=== PATIENT | male | born 1985 | race Caucasian/White ===

== ENCOUNTER 2018-11-13 20:08 | Emergency (ER) | payer SELFPAY ==
[~2018-11-13] VITALS: Ht 180.3 cm; Wt 59.0 kg
[~2018-11-13 20:08] MED LIST: DIAZ-345 PO; DOXY100C2 PO; HYDR1TAB PO
--- OUTSIDE RECORDS SUMMARY | 2018-11-13 20:12 | XMS REPORT ---
Author Author IRENE SOUSA Organization [employer] Address Unknown Phone Unavailable Care Team Providers Care Rn Digestive Name Role Phone IRENE SOUSA Unavailable Allergies No Known Allergies Problems Problem Type Condition ICD-9 Code Onset Dates Condition Status Problem Major depressive disorder, recurrent episode, moderate 296.32 Active Problem Abdominal pain, unspecified site 789.00 Active Medications Medication Code System Code Instructions Start Date End Date Status Dosage Xanax [facility] [address]-28 1 MG Orally Three times a day PRN Oct 09, 2014 1 tablet Results No Known Results Summary Purpose [employer] Submission
--- OUTSIDE RECORDS SUMMARY | 2018-11-13 20:13 | XMS REPORT | Continuity of Care Document ---
Author Author [facility] Address Unknown Phone Unavailable Allergies Active Description Code Type Severity Reaction Onset Reported/Identified Relationship to Patient Clinical Status Yes PCN PCN Unknown N/ A 02/22/2010 Yes Augmentin Drug Allergy N/A N/A 03/03/2010 Yes erythromycin Drug Allergy N/ A N/A 03/03/2010 Yes Penicillins Drug Allergy N/A N/A 03/03/2010 Yes Augmentin Drug Allergy 03/03/2010 Yes erythromycin Drug Allergy 03/03/2010 Yes Penicillins Drug Allergy 03/03/2010 Yes amoxicillin trihydrate [id number] Drug Allergy Unknown VOMITING 2011 Yes potassium clavulanate [id number] Drug Allergy Unknown VOMITING 2011 Medications There is no data. Problems Date Dx Coded Attending Type Code Diagnosis Diagnosed By 06/24/2008 300.01 AN PANIC DIS W/O AGORA 06/24/2008 311 MO DEPRESSIVE DISORDER NOS 06/24/2008 BERNABE ARIAS DO 300.01 AN PANIC DIS W/O AGORA 06/24/2008 BERNABE ARIAS DO 311 MO DEPRESSIVE DISORDER NOS 06/24/2008 300.01 AN PANIC DIS W/O AGORA 06/24/2008 311 MO DEPRESSIVE DISORDER NOS 06/24/2008 300.01 AN PANIC DIS W/O AGORA 06/24/2008 311 MO DEPRESSIVE DISORDER NOS 06/24/2008 BERNABE ARIAS DO 300.01 AN PANIC DIS W/O AGORA 06/24/2008 BERNABE ARIAS DO 311 MO DEPRESSIVE DISORDER NOS 06/24/2008 TAMIKO TOM APRN 300.01 AN PANIC DIS W/O AGORA 06/24/2008 TAMIKO TOM APRN 311 MO DEPRESSIVE DISORDER NOS 06/24/2008 TAMIKO TOM APRN 300.01 AN PANIC DIS W/O AGORA 06/24/2008 TAMIKO TOM APRN 311 MO DEPRESSIVE DISORDER NOS 06/24/2008 IRENE REED 300.01 AN PANIC DIS W/O AGORA 06/24/2008 IRENE REED 311 MO DEPRESSIVE DISORDER NOS 06/24/2008 IRENE REED 300.01 AN PANIC DIS W/O AGORA 06/24/2008 IRENE REDE Chantelle 311 MO DEPRESSIVE DISORDER NOS 07/03/2008 304.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 07/03/2008 307.47 SI DYSSOMNIA NOS 07/03/2008 BERNABE ARIAS DO 304.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 07/03/2008 BERNABE ARIAS DO 307.47 SI DYSSOMNIA NOS 07/03/2008 304.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 07/03/2008 307.47 SI DYSSOMNIA NOS 07/03/2008 304.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 07/03/2008 307.47 SI DYSSOMNIA NOS 07/03/2008 BERNABE ARIAS DO F 304.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 07/03/2008 BERNABE ARIAS DO F 307.47 SI DYSSOMNIA NOS 07/03/2008 NEGRO KINNEY TAMIKO CONTI 304.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 07/03/2008 TOM NIRMAL TAMIKO CONTI 307.47 SI DYSSOMNIA NOS 07/03/2008 NEGRO KINNEY TAMIKO CONTI 304.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 07/03/2008 NEGRO KINNEY TAMIKO CONTI 307.47 SI DYSSOMNIA NOS 07/03/2008 IRENE REED 304.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 07/03/2008 IRENE REED 307.47 SI DYSSOMNIA NOS 07/03/2008 IRENE REED 304.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 07/03/2008 IRENE REED 307.47 SI DYSSOMNIA NOS 02/22/2010 Ot 723.1 03/03/2010 723.1 CERVICALGIA 03/03/2010 728.87 MUSCLE WEAKNESS (GENERALIZED) 03/03/2010 783.21 WEIGHT LOSS 03/03/2010 787.01 NAUSEA WITH VOMITING 03/03/2010 BERNABE ARIAS DO 723.1 CERVICALGIA 03/03/2010 BERNABE ARIAS DO 728.87 MUSCLE WEAKNESS (GENERALIZED) 03/03/2010 WERDER DO, BERNABE F 783.21 WEIGHT LOSS 03/03/2010 PHI ARIAS DOEN F 787.01 NAUSEA WITH VOMITING 03/03/2010 723.1 CERVICALGIA 03/03/2010 728.87 MUSCLE WEAKNESS (GENERALIZED) 03/03/2010 783.21 WEIGHT LOSS 03/03/2010 787.01 NAUSEA WITH VOMITING 03/03/2010 723.1 CERVICALGIA 03/03/2010 728.87 MUSCLE WEAKNESS (GENERALIZED) 03/03/2010 783.21 WEIGHT LOSS 03/03/2010 787.01 NAUSEA WITH VOMITING 03/03/2010 BERNABE ARIAS DO F 723.1 CERVICALGIA 03/03/2010 PHI ARIAS DOEN F 728.87 MUSCLE WEAKNESS (GENERALIZED) 03/03/2010 PHI ARIAS DOEN F 783.21 WEIGHT LOSS 03/03/2010 BERNABE ARIAS DO F 787.01 NAUSEA WITH VOMITING 03/03/2010 NEGRO KINNEY TAMIKO CONTI 723.1 CERVICALGIA 03/03/2010 NEGRO KINNEY TAMIKO CONTI 728.87 MUSCLE WEAKNESS (GENERALIZED) 03/03/2010 NEGRO HOME ADVISOR, TAMIKO CONTI 783.21 WEIGHT LOSS 03/03/2010 TOM HOME ADVISOR, TAMIKO KCH 787.01 NAUSEA WITH VOMITING 03/03/2010 NEGRO KINNEY TAMIKO CONTI 723.1 CERVICALGIA 03/03/2010 NEGRO HOME ADVISOR, TAMIKO KCH 728.87 MUSCLE WEAKNESS (GENERALIZED) 03/03/2010 NEGRO KINNEY TAMIKO KCH 783.21 WEIGHT LOSS 03/03/2010 ENGRO KINNEY TAMIKO KCH 787.01 NAUSEA WITH VOMITING 03/03/2010 IRENE REED M 723.1 CERVICALGIA 03/03/2010 IRENE REED M 728.87 MUSCLE WEAKNESS (GENERALIZED) 03/03/2010 IRENE REED M 783.21 WEIGHT LOSS 03/03/2010 IRENE REED M 787.01 NAUSEA WITH VOMITING 03/03/2010 IRENE REED M 723.1 CERVICALGIA 03/03/2010 IRENE REED M 728.87 MUSCLE WEAKNESS (GENERALIZED) 03/03/2010 IRENE REED M 783.21 WEIGHT LOSS 03/03/2010 IRENE REED M 787.01 NAUSEA WITH VOMITING 05/28/2010 300.21 AN PANIC DIS W AGORA 05/28/2010 300.23 AN SOCIAL PHOBIA 05/28/2010 BERNABE ARIAS DO F 300.21 AN PANIC DIS W AGORA 05/28/2010 BERNABE ARIAS DO F 300.23 AN SOCIAL PHOBIA 05/28/2010 300.21 AN PANIC DIS W AGORA 05/28/2010 300.23 AN SOCIAL PHOBIA 05/28/2010 300.21 AN PANIC DIS W AGORA 05/28/2010 300.23 AN SOCIAL PHOBIA 05/28/2010 BERNABE ARIAS DO F 300.21 AN PANIC DIS W AGORA 05/28/2010 BERNABE ARIAS DO F 300.23 AN SOCIAL PHOBIA 05/28/2010 TAMIKO TOM APRN 300.21 AN PANIC DIS W AGORA 05/28/2010 NEGRO KINNEY TAMIKO GALLITO 300.23 AN SOCIAL PHOBIA 05/28/2010 TAMIKO TOM APRNH 300.21 AN PANIC DIS W AGORA 05/28/2010 NEGRO KINNEY TAMIKO GALLITO 300.23 AN SOCIAL PHOBIA 05/28/2010 IRENE REED M 300.21 AN PANIC DIS W AGORA 05/28/2010 IRENE REED M 300.23 AN SOCIAL PHOBIA 05/28/2010 IRENE REED M 300.21 AN PANIC DIS W AGORA 05/28/2010 IRENE REED M 300.23 AN SOCIAL PHOBIA 06/26/2010 300.02 AN GEN ANXIETY 06/26/2010 309.81 AN PTSD 06/26/2010 BERNABE ARIAS DO F 300.02 AN GEN ANXIETY 06/26/2010 BERNABE ARIAS DO F 309.81 AN PTSD 06/26/2010 300.02 AN GEN ANXIETY 06/26/2010 309.81 AN PTSD 06/26/2010 300.02 AN GEN ANXIETY 06/26/2010 309.81 AN PTSD 06/26/2010 BERNABE ARIAS DO F 300.02 AN GEN ANXIETY 06/26/2010 BERNABE ARIAS DO F 309.81 AN PTSD 06/26/2010 TAMIKO TOM APRNH 300.02 AN GEN ANXIETY 06/26/2010 NEGRO KINNEY TAMIKO GALLITO 309.81 AN PTSD 06/26/2010 NEGRO KINNEY TAMIKO GALLITO 300.02 AN GEN ANXIETY 06/26/2010 NEGRO KINNEY TAMIKO GALLITO 309.81 AN PTSD 06/26/2010 IRENE REED 300.02 AN GEN ANXIETY 06/26/2010 IRENE REED M 309.81 AN PTSD 06/26/2010 IRENE REED M 300.02 AN GEN ANXIETY 06/26/2010 MERRYIRENE CARABALLO 309.81 AN PTSD 11/12/2010 V58.69 LONG-TERM ( CURRENT) USE OF OTHER MEDICATIONS 11/12/2010 BERNABE ARIAS DO V58.69 LONG-TERM (CURRENT) USE OF OTHER MEDICATIONS 11/12/2010 V58.69 LONG-TERM ( CURRENT) USE OF OTHER MEDICATIONS 11/12/2010 V58.69 LONG-TERM ( CURRENT) USE OF OTHER MEDICATIONS 11/12/2010 BERNABE ARIAS DO V58.69 LONG-TERM (CURRENT) USE OF OTHER MEDICATIONS 11/12/2010 NEGRO KINNEY TAMIKO GALLITO V58.69 LONG-TERM (CURRENT) USE OF OTHER MEDICATIONS 11/12/2010 NEGRO KINNEY TAMIKO GALLITO V58.69 LONG-TERM (CURRENT) USE OF OTHER MEDICATIONS 11/12/2010 IRENE REED V58.69 LONG-TERM (CURRENT) USE OF OTHER MEDICATIONS 11/12/2010 IRENE REED V58.69 LONG-TERM (CURRENT) USE OF OTHER MEDICATIONS 02/16/2011 308.3 AN ACUTE STRESS DISORDER 02/16/2011 V06.5 DT, TETANUS- DIPHTHERIA [Td] ,TDAP 02/16/2011 BERNABE ARIAS DO 308.3 AN ACUTE STRESS DISORDER 02/16/2011 BERNABE ARIAS DO V06.5 DT, TETANUS-DIPHTHERIA [Td] ,TDAP 02/16/2011 308.3 AN ACUTE STRESS DISORDER 02/16/2011 V06.5 DT, TETANUS- DIPHTHERIA [Td] ,TDAP 02/16/2011 308.3 AN ACUTE STRESS DISORDER 02/16/2011 V06.5 DT, TETANUS- DIPHTHERIA [Td] ,TDAP 02/16/2011 BERNABE ARIAS DO 308.3 AN ACUTE STRESS DISORDER 02/16/2011 BERNABE ARIAS DO V06.5 DT, TETANUS-DIPHTHERIA [Td] ,TDAP 02/16/2011 TAMIKO TOM APRN 308.3 AN ACUTE STRESS DISORDER 02/16/2011 TAMIKO TOM APRN V06.5 DT, TETANUS-DIPHTHERIA [Td] ,TDAP 02/16/2011 NEGRO GAONTAMIKO 308.3 AN ACUTE STRESS DISORDER 02/16/2011 NEGRO KINNEY, TAMIKO CONTI V06.5 DT, TETANUS-DIPHTHERIA [Td] ,TDAP 02/16/2011 IRENE REED M 308.3 AN ACUTE STRESS DISORDER 02/16/2011 IRENE REED M V06.5 DT, TETANUS-DIPHTHERIA [Td] ,TDAP 02/16/2011 IRENE REED M 308.3 AN ACUTE STRESS DISORDER 02/16/2011 IRENE REED V06.5 DT, TETANUS-DIPHTHERIA [Td] ,TDAP 09/30/2012 Ot 305.1 09/30/2012 Ot 490 09/30/2012 Ot 786.50 09/30/2012 Ot 786.52 02/19/2013 789.00 ABDOMINAL PAIN UNSPECIFIED SITE 02/19/2013 BERNABE ARIAS DO 789.00 ABDOMINAL PAIN UNSPECIFIED SITE 02/19/2013 TAMIKO TOM APRN 789.00 ABDOMINAL PAIN UNSPECIFIED SITE 02/19/2013 NEGRO GAONTAMIKO 789.00 ABDOMINAL PAIN UNSPECIFIED SITE 02/19/2013 IRENE REED M 789.00 ABDOMINAL PAIN UNSPECIFIED SITE 02/19/2013 IRENE REED 789.00 ABDOMINAL PAIN UNSPECIFIED SITE 11/08/2013 NEGRO GAONTAMIKO 296.32 MO DEPRESSIVE RECURRENT MODERATE 11/08/2013 TOM HOME ADVISOR, TAMIKO CONTI 296.32 MO DEPRESSIVE RECURRENT MODERATE 11/08/2013 IRENE REED M 296.32 MO DEPRESSIVE RECURRENT MODERATE 11/08/2013 IRENE REED 296.32 MO DEPRESSIVE RECURRENT MODERATE Procedures Code [place] [address] HIDA SCAN 02/19/2013 REINIER UMANZOR 02/19/2013 Results There is no data. Encounters ACCT No. Visit Date/Time Discharge Status Pt. Type Provider Facility Loc./Unit Complaint [id number] 10/09/2014 14:33:00 10/09/2014 23:59:59 CLS Outpatient IRENE REED [id number] 10/09/2014 14:33:00 10/09/2014 23:59:59 CLS Outpatient IRENE REED [id number] 05/15/2014 11:28:00 05/15/2014 23:59:59 CLS Outpatient NEGRO GAONTAMIKO [id number] 11/08/2013 17:53:00 11/08/2013 23:59:59 CLS Outpatient NEGRO KINNEYTAMIKO [id number] 06/23/2013 10:59:00 06/23/2013 23:59:59 CLS Outpatient BERNABE ARIAS DO [id number] 11/07/2012 14:02:00 11/07/2012 23:59:59 CLS Outpatient BERNABE ARIAS DO [id number] 07/07/2012 14:32:00 07/07/2012 23:59:59 CLS Outpatient [id number] 02/19/2013 16:56:00 Document Registration [id number] 02/02/2013 15:22:00 Document Registration [id number] 02/03/2015 13:35:00 Document Registration [id number] 09/30/2012 13:42:00 Document Registration [id number] 02/22/2010 15:53:00 Document Registration
[2018-11-13] MEDS ORDERED: CEPH-507 PO (21:49)
--- NOTE | 2018-11-13 21:49 | ED EENT ---
History of Present Illness General Chief Complaint: Ear Problems Stated Complaint: EAR AND THROAT PAIN Nursing Triage Note: PATIENT AMBULATORY TO TRIAGE ROOM WITH COMPLAINT OF LEFT EAR AND THROAT PAIN THAT BEGAN TODAY. PATIENT TOOK IBUPROFEN AT 18:30 WITH NO RELIEF. Source: patient Exam Limitations: no limitations History of Present Illness Date Seen by Provider: Nov 13, 2018 Time Seen by Provider: 21:44 Allergies and Home Medications Allergies Coded Allergies: amoxicillin trihydrate (Verified Adverse Reaction, VOMITING, 09/30/12) potassium clavulanate (Verified Adverse Reaction, VOMITING, 09/30/12) Uncoded Allergies: PCN (Allergy, 02/22/10) Home Medications Diazepam 5 Mg Tablet, 1 EACH PO BID PRN Prescribed by: GERARDO DOMINGUEZ on 02/22/10 1712 Doxycycline Hyclate 100 Mg Capsule, 1 EACH PO BID Prescribed by: YAJAIRA RUSH on 09/30/12 1455 Hydrocodone Bit/Acetaminophen 1 Each Tablet, 1-2 EACH PO Q4HR PRN Prescribed by: GERARDO DOMINGUEZ on 02/22/10 1711 Past Gdasvjw-Potslb-Fpuxsq Hx Patient Social History Alcohol Use: Denies Use Recreational Drug Use: No Smoking Status: Current Everyday Smoker Type Used: Cigarettes 2nd Hand Smoke Exposure: Yes Recent Foreign Travel: No Contact w/Someone Who Travel: No Recent Infectious Disease Expo: No Recent Hopitalizations: No Immunizations Up To Date PED Vaccines UTD: Yes Seasonal Allergies Seasonal Allergies: No Past Medical History Surgeries: No Respiratory: No Cardiac: No Neurological: Yes (BROKEN NECK WITH HALO -2008) Concussion, Spinal Cord Injury Gastrointestinal: No Musculoskeletal: No Endocrine: No HEENT: No Cancer: No Psychosocial: No Integumentary: No Blood Disorders: No Physical Exam Vital Signs Vital Signs - First Documented 11/13/18 21:07 Temp 98.1 Pulse 63 Resp 14 B/P (MAP) 110/61 (77) Pulse Ox 99 O2 Delivery Room Air Height, Weight, BMI Height: 5'11.00" Weight: 130lbs. oz. 58.965730iq; BMI Method:Stated Progress/Results/Core Measures Results/Orders Vital Signs/I&O 11/13/18 21:07 Temp 98.1 Pulse 63 Resp 14 B/P (MAP) 110/61 (77) Pulse Ox 99 O2 Delivery Room Air Blood Pressure Mean: 77 Departure Impression Primary Impression: Otitis media Disposition: 01 HOME, SELF-CARE Condition: Stable/Unchanged Departure-Patient Inst. Decision time for Depature: 21:45 Referrals: NO,LOCAL PHYSICIAN (PCP/Family) Primary Care Physician Patient Instructions: Ear Infections (Otitis Media) (DC) Add. Discharge Instructions: Take medications as directed. Follow-up with your primary care provider within 1 week for recheck. You may use ibuprofen and Tylenol as directed by the bottle for pain relief. Return back to the emergency room for worsening symptoms or concerns as needed. All discharge instructions reviewed with patient and/or family. Voiced understanding. Scripts Cephalexin (Keflex) 500 Mg Capsule 500 MG PO BID for 10 Days, #20 CAP Prov: WILLIAM QUEZADA 11/13/18 WILLIAM QUEZADA Nov 13, 2018 21:49
[2018-11-13] MEDS: cefTRIAXone 1,000 MG/2.86 ml vial (IM ONLY) IM SCH (21:59)
[2018-11-13] MEDS ORDERED: LIDOCAINE 1% INJ 20 ML 20 ML VIAL INJ ONE (22:00)
[2018-11-14 00:53] VITALS: BP 110/77
== END 2018-11-13 22:11 | disposition home or self-care (01) ==
LOC: EDUNIT# 20:08 → ER 20:09
DX: H66.92 Otitis media, unspecified, left ear (principal); F17.210 Nicotine dependence, cigarettes, uncomplicated; Z88.1 Allergy status to other antibiotic agents; Z88.0 Allergy status to penicillin
CPT/HCPCS: 99284

== ENCOUNTER → 2023-06-28 | Outpatient (CLI) | payer OTHER ==
[~2023-06-28] MED LIST changes: +CEPH-507 PO; +GADOTERATE 0.5 MMOL/ML (CLARISCAN) 15 ML VIAL IV ONE
--- NOTE | 2023-06-28 15:02 | Diagnostic Imaging Report ---
PROCEDURE: MR imaging of the brain without contrast. TECHNIQUE: Multiplanar, multisequence MR imaging of the brain was performed without contrast. INDICATION: Severe headaches for 3 years. COMPARISON: No prior studies are available for comparison. Ventricles and sulci are within normal limits. No sulcal effacement or midline shift is identified. No acute intra-axial or extra-axial hemorrhage is detected. There is no diffusion restriction identified. The corpus callosum is unremarkable. The sella and parasellar structures are unremarkable. IMPRESSION: Unremarkable noncontrast MRI of the brain. No acute feature is detected. Dictated by: Dictated on workstation # [id number]
== END ==
LOC: RAD 11:52
PROVIDERS: ATTEND Physician Assistant
DX: H53.9 Unspecified visual disturbance (principal); R51.9 Headache, unspecified; R42 Dizziness and giddiness
CPT/HCPCS: 70551